=== PATIENT | female | born 1965 | race Caucasian/White ===

== ENCOUNTER 2022-09-02 09:56 | Emergency (ER) | payer MEDICAID ==
[~2022-09-02] VITALS: Ht 162.6 cm; Wt 83.0 kg
[2022-09-02 10:00] VITALS: BP 156/79
[2022-09-02] MEDS ORDERED: KETOROLAC 60MG/2ML VIAL IM STA (10:46)
[2022-09-02] MEDS ORDERED: NAPR-681 PO (12:50)
[2022-09-02] MEDS ORDERED: CYCL5TAB MT (12:50)
== END 2022-09-02 13:05 | disposition home or self-care (01) ==
LOC: ER 10:15
DX: S20.219A Contusion of unspecified front wall of thorax, initial encounter (principal); M79.601 Pain in right arm; M25.512 Pain in left shoulder; E11.9 Type 2 diabetes mellitus without complications; V79.60XA Unspecified bus occupant injured in collision with unspecified motor vehicles in traffic accident, initial encounter; Y93.89 Activity, other specified; Y92.89 Other specified places as the place of occurrence of the external cause; Y99.8 Other external cause status
CPT/HCPCS: 71046; 73060; 96372; 99284; J1885